=== PATIENT | male | born 1980 | race African-American/Black ===

== ENCOUNTER 2020-11-14 08:35 | Emergency (ER) | payer SELFPAY ==
[2020-11-14 08:48] VITALS: BP 135/91; PULSE 77; TEMP 98.3; BMI 27.3
[2020-11-14] MEDS ORDERED: ACETAMINOPHEN 325 MG TABLET (FP) PO ONE (09:43)
[2020-11-14] MEDS ORDERED: ACETAMINOPHEN 325 MG TABLET (FP) ONE (09:57)
== END 2020-11-14 10:02 | disposition home or self-care (01) ==
LOC: JERFT 08:35
DX: R51.9 Headache, unspecified (principal); W01.198A Fall on same level from slipping, tripping and stumbling with subsequent striking against other object, initial encounter
CPT/HCPCS: 99283-25

== ENCOUNTER 2022-07-09 07:51 | Inpatient (IN) | payer OTHER ==
[2022-07-09 08:02] VITALS: BMI 25.8
[2022-07-09] MEDS ORDERED: KETOROLAC TROMETHAMINE 15 MG/ML VIAL IVPUSH ONE (08:33)
[2022-07-09] MEDS ORDERED: KETOROLAC TROMETHAMINE 15 MG/ML VIAL ONE (08:35)
[2022-07-09 09:28] LABS: HEMATOCRIT 32.6 % (35.4-49); HEMOGLOBIN 11.1 GM/dL (11.7-16.9); MCH 31.7 pg (25.7-33.7); MEAN CELL VOLUME 93.2 fl (80-96); MEAN PLT VOLUME 7.4 fl (7.5-11.1); PLATELET COUNT 348 10^3/uL (134-434); RBC 3.49 M/mm3 (4.00-5.60); RDW 15.8 % (11.9-15.9); WHITE BLOOD COUNT 5.7 K/mm3 (4.0-10.0)
[2022-07-09 09:51] LABS: POTASSIUM 5.6 mmol/L (3.5-5.1)
[2022-07-09 09:53] LABS: CALCIUM 9.2 mg/dL (8.5-10.1)
[2022-07-09 09:54] LABS: ALBUMIN 4.1 g/dl (3.4-5.0); BLOOD UREA NITROGEN 12.4 mg/dL (7-18); MAGNESIUM 2.6 mg/dL (1.8-2.4)
[2022-07-09 09:55] LABS: ANISOCYTOSIS 0; HELMET CELLS 0; HOWELL-JOLLY BODIES 0; MACROCYTOSIS 0; OVALOCYTE 0; ROULEAU 0; SICKELED CELLS 0; TARGET CELLS 0; TEAR DROP CELLS 0; TOXIC GRANULATION 0
[2022-07-09 09:56] LABS: CREATININE 1.1 mg/dL (0.55-1.3)
[2022-07-09 09:58] LABS: BILIRUBIN,TOTAL 0.2 mg/dL (0.2-1); TOT PROT 7.6 g/dl (6.4-8.2)
[2022-07-09 10:08] LABS: ERYTHROCYTE SEDIMENTATION RATE 43 mm/hr (0-10)
[2022-07-09 10:11] LABS: VENOUS BASE EXCESS 3.3 mmol/L (-2-2); VENOUS O2 SATURATION 45.3 % (70-80); VENOUS PCO2 47.8 mmHg (38-52); VENOUS PH 7.398 (7.310-7.410)
[2022-07-09] MEDS ORDERED: LEVOTHYROXINE SODIUM 100 MCG 5 ML VIAL IVPUSH ONE (10:39)
[2022-07-09] MEDS ORDERED: LIOTHYRONINE SODIUM 5 MCG TABLET PO ONE (10:41)
[2022-07-09] MEDS ORDERED: LEVOTHYROXINE NA 200 MCG TABLET PO ONE (10:53)
[2022-07-09] MEDS ORDERED: SODIUM ZIRCONIUM CYCLOSILICATE (LOKELMA) 5 GM PACKET PO ONE (12:30)
[2022-07-09] MEDS ORDERED: SODIUM ZIRCONIUM CYCLOSILICATE (LOKELMA) 5 GM PACKET ONE (12:31)
[2022-07-09] MEDS ORDERED: ACETAMINOPHEN 500 MG TABLET (FP) PO PRN (12:53)
[2022-07-09] MEDS ORDERED: ASPIRIN 81 MG CHEWABLE TABLETS ONE (13:06)
[2022-07-09] MEDS: ASPIRIN 81 MG CHEWABLE TABLETS PO SCH (13:10)
[2022-07-09] MEDS ORDERED: SODIUM CHLORIDE 1,000 ML IV SCH (13:30)
[2022-07-09 13:36] LABS: EPI CELLS 29 /uL (0-25.1); HYALINE CASTS 1 /uL (0-3.1); PH,URINE 6.5 (5.0-8.0); URINE APPEARANCE CLEAR; URINE BACTERIA 10 /uL (0-1359); URINE BILIRUBIN NEGATIVE (NEGATIVE); URINE COLOR YELLOW; URINE GLUCOSE (UA) NEGATIVE (NEGATIVE); URINE KETONE NEGATIVE (NEGATIVE); URINE LEUK ESTERASE 1+ (NEGATIVE); URINE NITRITE NEGATIVE (NEGATIVE); URINE PROTEIN TRACE (NEGATIVE); URINE RBC 24 /uL (0-23.9); URINE UROBILINOGEN 0.2 mg/dL (0.2-1.0); URINE WBC 291 /uL (0-25.8)
[2022-07-10] MEDS ORDERED: LEVOTHYROXINE NA 100 MCG TABLET (FP) PO SCH (07:00)
[2022-07-10 07:47] LABS: BASO % 0.1 % (0-2.0); HEMATOCRIT 33.1 % (35.4-49); HEMOGLOBIN 11.3 GM/dL (11.7-16.9); LYMPH % 33.2 % (8-40); MCH 31.8 pg (25.7-33.7); MCHC 34.1 g/dl (32.0-35.9); MEAN CELL VOLUME 93.2 fl (80-96); MEAN PLT VOLUME 8.4 fl (7.5-11.1); MONO % 9.7 % (3.8-10.2); PLATELET COUNT 359 10^3/uL (134-434); RBC 3.55 M/mm3 (4.00-5.60); RDW 15.1 % (11.9-15.9); WHITE BLOOD COUNT 5.9 K/mm3 (4.0-10.0)
[2022-07-10 08:12] LABS: POTASSIUM 4.8 mmol/L (3.5-5.1)
[2022-07-10 08:21] LABS: BLOOD UREA NITROGEN 15.2 mg/dL (7-18); CALCIUM 9.1 mg/dL (8.5-10.1)
[2022-07-10 08:25] LABS: CREATININE 1.2 mg/dL (0.55-1.3)
[2022-07-10] MEDS: ASPIRIN 81 MG CHEWABLE TABLETS PO SCH (10:35)
[2022-07-10 14:53] VITALS: BP 144/74; PULSE 70; RESP 22; TEMP 98.2
[2022-07-10] MEDS ORDERED: SODIUM CHLORIDE 1,000 ML IV SCH (15:16)
== END 2022-07-10 18:08 | disposition left against medical advice (07) | DRG 424 ==
LOC: JER 07:51 → JERBED 12:49 → J4W 16:25 → OBSVTOIN 07-10 10:10
PROVIDERS: ADMIT Internal Medicine; ATTEND Internal Medicine
DX: E03.9 Hypothyroidism, unspecified (principal); M62.82 Rhabdomyolysis; I42.8 Other cardiomyopathies; G73.7 Myopathy in diseases classified elsewhere; M17.0 Bilateral primary osteoarthritis of knee; E87.5 Hyperkalemia; K21.9 Gastro-esophageal reflux disease without esophagitis; E78.5 Hyperlipidemia, unspecified; I24.8 Other forms of acute ischemic heart disease; H92.02 Otalgia, left ear; R26.2 Difficulty in walking, not elsewhere classified; R53.83 Other fatigue; I50.22 Chronic systolic (congestive) heart failure
CPT/HCPCS: 0241U-QW; 36415; 71045-TC-FY; 73562-TC-LT-FY; 73562-TC-RT-FY; 80048; 80053; 80061; 81003; 82010; 82533; 82550; 82553; 82803; 83735; 83874; 84439; 84443; 84484; 85025; 85651; 86140; 93005; 93010; 93306-TC; 97116-GP; 97162-GP; 99285-25; G0378

== ENCOUNTER 2023-03-20 07:58 | Emergency (ER) | payer OTHER ==
[2023-03-20 08:13] VITALS: RESP 20; BMI 27.3
[2023-03-20] MEDS ORDERED: LIDOCAINE 4% PATCH TP ONE ×2 (08:30→08:38)
[2023-03-20] MEDS ORDERED: KETOROLAC TROMETHAMINE 30 MG/1 ML VIAL IM ONE (08:30)
[2023-03-20] MEDS ORDERED: METHOCARBAMOL 500 MG TABLET PO ONE (08:30)
[2023-03-20] MEDS ORDERED: METHOCARBAMOL 500 MG TABLET ONE (08:39)
[2023-03-20] MEDS ORDERED: KETOROLAC TROMETHAMINE 30 MG/1 ML VIAL ONE (08:39)
[2023-03-20 10:24] VITALS: BP 152/82; PULSE 87; TEMP 98.9
== END 2023-03-20 10:38 | disposition home or self-care (01) ==
LOC: JER 07:58 → JERFT 07:58
PROC: 3E0233Z Introduction of Anti-inflammatory into Muscle, Percutaneous Approach (ICD-10-PCS; principal; 2023-03-20)
DX: M25.551 Pain in right hip (principal); W01.0XXA Fall on same level from slipping, tripping and stumbling without subsequent striking against object, initial encounter
CPT/HCPCS: 73502-TC-RT-FY; 99284-25